=== PATIENT | female | born 1955 | race Caucasian/White ===

== ENCOUNTER 2017-07-18 17:40 | Emergency (ER) | payer OTHER ==
[~2017-07-18] VITALS: Ht 157.5 cm; Wt 106.6 kg
[2017-07-18] MEDS ORDERED: IBERSALTAN PO (17:54)
[2017-07-18] MEDS ORDERED: METFORMIN HCL500 MG PO (17:54)
[2017-07-18] MEDS ORDERED: MILLIPRED5 MG (17:55)
[2017-07-18] MEDS ORDERED: METROTREXATE PO (17:57)
[2017-07-18] MEDS ORDERED: IMURAN50 MG PO (17:57)
[2017-07-18] MEDS ORDERED: HYDRALAZINE HCL25 MG PO (17:58)
== END 2017-07-18 20:46 | disposition home or self-care (01) ==
LOC: ER 17:40
DX: J32.8 Other chronic sinusitis (principal); J40 Bronchitis, not specified as acute or chronic